=== PATIENT | female | born 1985 | race Caucasian/White ===

== ENCOUNTER 2018-12-21 15:56 | Emergency (ER) | payer BC ==
--- NOTE | 2018-12-21 16:43 | EDM.PDOC ---
ED HPI GENERAL MEDICAL PROBLEM - General Chief Complaint: Lower Extremity Injury/Pain Stated Complaint: RIGHT FOOT SWOLLEN Time Seen by Provider: 12/21/18 16:26 Source of Information: Reports: Patient History Limitations: Reports: No Limitations - History of Present Illness INITIAL COMMENTS - FREE TEXT/NARRATIVE: HISTORY AND PHYSICAL: History of present illness: Patient is a 33-year-old female who presents to the emergency room today with complaints of right foot pain below the fourth and fifth toe. She states she had dropped a 3 pound weight on her foot and developed pain, soft tissue swelling and bruising. She is able to weight-bear, although this does cause pain. Patient denies any fever, chills, headache, change in vision, syncope or near syncope. Denies any chest pain, back pain, shortness of breath or cough. Denies any abdominal pain, nausea, vomiting, diarrhea, constipation or dysuria. Has not noted any blood in urine or stool. Patient has been eating and drinking appropriately. Review of systems: As per history of present illness and below otherwise all systems reviewed and negative. Past medical history: As per history of present illness and as reviewed below otherwise noncontributory. Surgical history: As per history of present illness and as reviewed below otherwise noncontributory. Social history: See social history for further information Family history: As per history of present illness and as reviewed below otherwise noncontributory. Physical exam: General: Well-developed and well-nourished 33-year-old female. Alert and oriented. Nontoxic appearing and in no acute distress. HEENT: Atraumatic, normocephalic, pupils equal and reactive bilaterally, negative for conjunctival pallor or scleral icterus, mucous membranes moist, trachea midline. No drooling or trismus noted. No meningeal signs. No hot potato voice noted. Lungs: Clear to auscultation, breath sounds equal bilaterally, chest nontender. Heart: S1S2, regular rate and rhythm without overt murmur Abdomen: Soft, nondistended, nontender Skin: Bruising noted at the base of the fourth and fifth toe on the right foot. Otherwise skin is intact, warm, dry. No lesions or rashes noted. Extremities: Pain with palpation over the base of the fourth and fifth toe on the right foot, moves all extremities per self without difficulty or deficits, strong pedal and pretibial pulses bilaterally, negative for cords or calf pain. Neurovascular unremarkable. Neuro: Awake, alert, oriented. Cranial nerves II through XII unremarkable. Cerebellum unremarkable. Motor and sensory unremarkable throughout. Exam nonfocal. Notes: I did offer the patient Toradol IM, she declines. At this time. X-ray is within normal limits. Did offer the patient Sharad wrap and crutches. Diclofenac as needed for home use. Supportive care measures were reviewed and discussed. Voices understanding and is agreeable to plan of care. Denies any further questions or concerns at this time. Diagnostics: Foot x-ray Therapeutics: Sharad wrap and crutches Prescription: Diclofenac Impression: Right foot injury Plan: 1. Rest, ice, elevate the affected extremity. Please wear the splint as directed. 2. Tylenol and/or Ibuprofen as needed for pain management. 3. Follow up with the Orthopedic provider as we discussed. Return to the ED as needed and as discussed. Definitive disposition and diagnosis as appropriate pending reevaluation and review of above. 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[employer] TECHNICIAN History: Musculoskeletal History: Reports: None Psychiatric History: Reports: Bipolar - Infectious Disease History Infectious Disease History: Reports: Chicken Pox - Past Surgical History HEENT Surgical History: Reports: None Musculoskeletal Surgical History: Reports: Other (See Below) Other Musculoskeletal Surgeries/Procedures:: Right broken elbow Social & Family History - Family History Family Medical History: Noncontributory - Tobacco Use Smoking Status *Q: Former Smoker Used Tobacco, but Quit: Yes Month/Year Tobacco Last Used: 2017 - Caffeine Use Caffeine Use: Reports: Coffee, Soda - Recreational Drug Use Recreational Drug Use: No Review of Systems - Review of Systems Review Of Systems: ROS reveals no pertinent complaints other than HPI. ED EXAM, GENERAL - Physical Exam Exam: See Below (See dictation) Course - Vital Signs Last Recorded V/S: Last Vital Signs Temp 96.4 F 12/21/18 16:14 Pulse 74 12/21/18 16:14 Resp 19 12/21/18 16:14 BP 143/92 H 12/21/18 16:14 Pulse Ox 96 12/21/18 16:14 - Orders/Labs/Meds Orders: Active Orders 24 hr Category Date Time Status Foot Comp Min 3V Rt [CR] Stat Exams 12/21/18 16:27 Taken DME for Discharge [COMM] Stat Oth 12/21/18 17:17 Ordered Departure - Departure Time of Disposition: 17:18 Disposition: Home, Self-Care 01 Clinical Impression: Foot injury Qualifiers: Encounter type: initial encounter Laterality: right Qualified Code(s): S99.921A - Unspecified injury of right foot, initial encounter Contusion Qualifiers: Encounter type: initial encounter Contusion area: foot Laterality: right Qualified Code(s): S90.31XA - Contusion of right foot, initial encounter - Discharge Information Prescriptions: Diclofenac Sodium [Voltaren] 75 mg PO BIDMEALS PRN #30 tab.cr PRN Reason: Pain Instructions: Foot Sprain Referrals: Dayanna Mendoza, [employer] [Primary Care Provider] - Forms: ED Department Discharge Additional Instructions: The following information is given to patients seen in the emergency department who are being discharged to home. This information is to outline your options for follow-up care. We provide all patients seen in our emergency department with a follow-up referral. The need for follow-up, as well as the timing and circumstances, are variable depending upon the specifics of your emergency department visit. If you don't have a primary care physician on staff, we will provide you with a referral. We always advise you to contact your personal physician following an emergency department visit to inform them of the circumstance of the visit and for follow-up with them and/or the need for any referrals to a consulting specialist. The emergency department will also refer you to a specialist when appropriate. This referral assures that you have the opportunity for follow-up care with a specialist. All of these measure are taken in an effort to provide you with optimal care, which includes your follow-up. Under all circumstances we always encourage you to contact your private physician who remains a resource for coordinating your care. When calling for follow-up care, please make the office aware that this follow-up is from your recent emergency room visit. If for any reason you are refused follow-up, please contact the [facility] Emergency Department at and asked to speak to the emergency department charge nurse. [facility] [address] [place] [address] [id number] [address] [address] 1. Rest, ice, elevate the affected extremity. Please wear the sharad wrap as directed. 2. Tylenol and/or Ibuprofen as needed for pain management. 3. Follow up with the Orthopedic provider as we discussed. Return to the ED as needed and as discussed. - My Orders Last 24 Hours: My Active Orders 12/21/18 16:27 Foot Comp Min 3V Rt [CR] Stat 12/21/18 17:17 DME for Discharge [COMM] Stat - Assessment/Plan Last 24 Hours: My Active Orders 12/21/18 16:27 Foot Comp Min 3V Rt [CR] Stat 12/21/18 17:17 DME for Discharge [COMM] Stat
--- NOTE | 2018-12-21 17:34 | CR ---
INDICATION: Dropped weight on foot. COMPARISON: None available. TECHNIQUE: Three views of the right foot. FINDINGS: No definite acute fracture dislocation. Bone mineralization is normal. No radiopaque foreign body. IMPRESSION: No definite acute fracture or dislocation. Dictated by Adal Tate MD @ Dec 21 2018 5:24PM (Electronically Signed)
== END 2018-12-21 17:48 | disposition home or self-care (01) ==
LOC: MW.ED 15:56
DX: S90.121A Contusion of right lesser toe(s) without damage to nail, initial encounter (principal); Z88.1 Allergy status to other antibiotic agents; Z88.2 Allergy status to sulfonamides; W20.8XXA Other cause of strike by thrown, projected or falling object, initial encounter
CPT/HCPCS: 73630-26-RT; 73630-RT; 99283-25